=== PATIENT | male | born 1995 | race Caucasian/White ===

== ENCOUNTER 2018-03-09 09:57 | Inpatient (IN) | payer OTHER ==
[2018-03-09 10:58] VITALS: BMI 26.6
--- NOTE | 2018-03-09 11:43 | HP ---
COWS - Scale Resting Pulse: 1= [place] 81-100 Sweatin= Chills/Flushing Restless Observation: 1= Difficult to Sit Still Pupil Size: 0= Normal to Room Light Bone or Joint Aches: 2= Severe Diffuse Aches Runny Nose/ Eye Tearin= Runny Nose/Eyes GI Upset > 30mins: 1= Stomach Cramp Tremor Observation: 2= Slight Tremor Visible Yawning Observation: 1= 1-2x During Session Anxiety or Irritability: 1=Feels Anxious/Irritable Goose Flesh Skin: 0=Smooth Skin COWS Score: 12 CIWA Score - CIWA Score Nausea/Vomitin Muscle Tremors: 3 Anxiety: 3 Agitation: 0-Normal Activity Paroxysmal Sweats: No Perspiration Orientation: 1-Uncertain about Date Tacttile Disturbances: 0-None Auditory Disturbances: 0-None Visual Disturbances: 0-None Headache: 3-Moderate CIWA-Ar Total Score: 12 Admission ROS BHS - HPI Chief Complaint: I see I need help, I need to take this step to better myself. Allergies/Adverse Reactions: Allergies Allergy/AdvReac Type Severity Reaction Status Date / Time No Known Allergies Allergy Verified 03/09/18 10:55 History of Present Illness: 23 yo gentleman her for detox from alcohol and opiates. He reports relapsing after 10 months in recovery. Was in rehab in [place] for 115 days - released in Jun 22, 2017. Came to [place] in November and relapsed. No overdoses, no black outs, denies seizures. Currently attending [facility] outpatient treatment program and was advised he needed higher level of care and to come in for detox. Exam Limitations: Clinical Condition - Ebola screening Have you traveled outside of the country in the last 21 days: No (N) Have you had contact with anyone from an Ebola affected area: No Have you been sick,other than usual withdrawal symptoms: No Do you have a fever: No - Review of Systems Constitutional: Loss of Appetite, Malaise, Changes in sleep EENT: reports: Nose Congestion Respiratory: reports: No Symptoms reported Cardiac: reports: No Symptoms Reported GI: reports: Nausea, Abdominal cramping : reports: Dysuria Musculoskeletal: reports: Back Pain, Muscle Pain Integumentary: reports: No Symptoms Reported Neuro: reports: Headache Endocrine: reports: No Symptoms Reported Hematology: reports: No Symptoms Reported Psychiatric: reports: Judgement Intact, Mood/Affect Appropiate, Anxious Other Systems: Reviewed and Negative Patient History - Patient Medical History Hx Asthma: No Hx Chronic Obstructive Pulmonary Disease (COPD): No Hx Cancer: No Hx Cardiac Disorders: No Hx Hypertension: No Hx Hypercholesterolemia: No Hx Pacemaker: No Hx Seizures: No Hx Diabetes: No Hx Gastrointestinal Disorders: No Hx Liver Disease: No Hx Genitourinary Disorders: No Hx Sexually Transmitted Disorders: No Hx Renal Disease (ESRD): No Hx Thyroid Disease: No Hx Human Immunodeficiency Virus (HIV): No Hx Hepatitis C: No Hx Depression: Yes (hx trazadone, xanax in [place], ADHD - adderal) Hx Suicide Attempt: No Hx Schizophrenia: No - Patient Surgical History Hx Appendectomy: Yes (2014) Anesthesia Reaction: No - PPD History Previous Implant?: No - Reproductive History Patient is a Female of Child Bearing Age (11 -55 yrs old): No (male) - Smoking Cessation Smoking history: Current some day smoker Have you smoked in the past 12 months: Yes Aproximately how many cigarettes per day: 10 Hx Chewing Tobacco Use: No Initiated information on smoking cessation: Yes 'Breaking Loose' booklet given: 03/09/18 (give on floor) - Substance & Tx. History Hx Alcohol Use: Yes Hx Substance Use: Yes Substance Use Type: Alcohol, Heroin Hx Substance Use Treatment: Yes (inpatient and outpatient rehab) - Substances Abused Alcohol Route: Oral Frequency: Daily Amount used: 2 24ozs beer Age of first use: 15 Date of Last Use: 03/08/18 Oxycontin Route: inhales but occasionally injects Frequency: 1-2 times per week Amount used: 60mg Age of first use: 20 Date of Last Use: 03/03/18 Heroin Route: mainly inhales but occasionally injects Frequency: Daily Amount used: 5-6 bags Age of first use: 21 Date of Last Use: 03/08/18 Family Disease History - Family Disease History Family Disease History: Diabetes: Grandparent (htn,), Heart Disease: Grandparent , Other: Grandparent, Father (living, PTSD), Mother (living - mental health issues) Admission Physical Exam BHS - Vital Signs Vital Signs: Vital Signs - 24 hr 03/09/18 10:56 Temperature 97.8 F Pulse Rate 89 Respiratory 20 Rate Blood Pressure 129/75 - Physical General Appearance: Yes: Nourished, Appropriately Dressed, Moderate Distress, Anxious HEENTM: Yes: EOMI, Hearing grossly Normal, Normocephalic, Normal Voice, Pharynx Normal, Other (tongue coated) Respiratory: Yes: Normal Breath Sounds, No Respiratory Distress Neck: Yes: No masses,lesions,Nodules, Supple Breast: Yes: Breast Exam Deferred Cardiology: Yes: Regular Rhythm, Regular Rate Abdominal: Yes: Non Tender, Soft Genitourinary: Yes: Dysuria Back: Yes: Normal Inspection Musculoskeletal: Yes: full range of Motion, Gait Steady, Back pain, Muscle Pain Extremities: Yes: Normal Capillary Refill, Normal Inspection, Non-Tender Neurological: Yes: Fully Oriented, Alert, Motor Strength 5/5, Normal Mood/Affect , Normal Response Integumentary: Yes: Normal Color, Warm, Track [place] (no abscess noted, both arms ) Lymphatic: Yes: Within Normal Limits - Diagnostic (1) Opioid dependence with withdrawal Current Visit: Yes Status: Chronic (2) Alcohol dependence with uncomplicated withdrawal Current Visit: Yes Status: Chronic (3) Nicotine dependence Current Visit: Yes Status: Chronic Qualifiers: Nicotine product type: cigarettes Substance use status: uncomplicated Qualified Code(s): F17.210 - Nicotine dependence, cigarettes, uncomplicated Cleared for Admission [facility] - Detox or Rehab [facility] Level of Care: Medically Managed Detox Regimen/Protocol: Methadone/Librium S Breath Alcohol Content Breath Alcohol Content: 0 Urine Drug Screen - Results Drug Screen Negative: No Urine Drug Screen Results: OPI-Opiates, FEN-Fentanyl
[2018-03-09] MEDS ORDERED: MAGNESIUM CITRATE 300 ML BOTTLE PO PRN (12:16)
[2018-03-09] MEDS ORDERED: MAGNESIUM HYDROX 2400MG/30ML ORAL SUSPENSION 30 ML CUP PO PRN (12:16)
[2018-03-09] MEDS ORDERED: MAG HYDROX/AL HYDROX/SIMETH 30 ML UNIT-DOSE CUP PO PRN (12:16)
[2018-03-09] MEDS ORDERED: hydrOXYzine PAMOATE 25 MG CAPSULE (FP) PO PRN (12:16)
[2018-03-09] MEDS ORDERED: guaiFENesin/D-METHORPHAN HB 10 ML UNIT-DOSE CUPS PO PRN (12:16)
[2018-03-09] MEDS ORDERED: chlordiazePOXIDE HCL 25 MG CAPSULE PO PRN (12:16)
[2018-03-09] MEDS ORDERED: LOPERAMIDE HCL 2 MG CAPSULE PO PRN (12:16)
[2018-03-09] MEDS ORDERED: P-EPHED 60MG/TRIPROLIDI 2.5MG TABLET PO PRN (12:16)
[2018-03-09] MEDS ORDERED: IBUPROFEN 400 MG TABLET (FP) PO PRN (12:16)
[2018-03-09] MEDS ORDERED: MENTHOL/PHENOL 1 EACH UD MM PRN (12:16)
[2018-03-09] MEDS ORDERED: chlordiazePOXIDE HCL 25 MG CAPSULE PO ONE (14:00)
[2018-03-09] MEDS ORDERED: METHADONE HCL 10 MG TABLET (FOR DETOX USE ONLY) PO ONE ×4 (14:00→23:00)
[2018-03-09] MEDS: NICOTINE 21 MG/24 HOURS TOPICAL PATCH TD SCH (14:14)
[2018-03-09] MEDS ORDERED: diazePAM 5 MG TABLET PO ONE (15:00)
[2018-03-09] MEDS: diazePAM 5 MG TABLET PO SCH ×2 (15:14→22:18)
[2018-03-09] MEDS ORDERED: chlordiazePOXIDE HCL 25 MG CAPSULE PO SCH (17:00)
[2018-03-09 17:55] LABS: URINE APPEARANCE SLCLOUDY; URINE BILIRUBIN NEGATIVE (<2.0 mg/dL); URINE COLOR YELLOW; URINE GLUCOSE (UA) NEGATIVE (NEGATIVE); URINE KETONE NEGATIVE (NEGATIVE); URINE LEUK ESTERASE NEGATIVE (NEGATIVE); URINE NITRITE NEGATIVE (NEGATIVE); URINE PROTEIN NEGATIVE (NEGATIVE); URINE UROBILINOGEN NEGATIVE mg/dL (0.2-1.0)
[2018-03-09] MEDS: diazePAM 5 MG TABLET PO PRN (18:01)
--- NOTE | 2018-03-09 18:09 | EKG ---
Test Reason : Blood Pressure : / mmHG Vent. Rate : 103 BPM Atrial Rate : 103 BPM P-R Int : 122 ms QRS Dur : 094 ms QT Int : 356 ms P-R-T Axes : 064 063 033 degrees QTc Int : 466 ms SINUS TACHYCARDIA OTHERWISE NORMAL ECG NO PREVIOUS ECGS AVAILABLE Confirmed by ROVERTO COCHRAN MD ([id number]) on 03/09/2018 6:09:20 PM Referred By: Confirmed By:ROVERTO COCHRAN MD
[2018-03-09] MEDS ORDERED: MELATONIN 5 MG TABLETS PO PRN (22:00)
[2018-03-09] MEDS: FLUTICASONE PROP 0.05% 16 GM NASAL SPRAY NS SCH (22:17)
[2018-03-09] MEDS: THIAMINE HCL 100 MG TABLET (FP) PO SCH (22:18)
[2018-03-10] MEDS: diazePAM 5 MG TABLET PO SCH ×3 (05:22→22:13)
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
[2018-03-10 09:53] LABS: HEMATOCRIT 41.1 % (35.4-49); HEMOGLOBIN 13.6 GM/dL (11.7-16.9); MCH 29.7 pg (25.7-33.7); MCHC 33.1 g/dl (32.0-35.9); MEAN CELL VOLUME 89.6 fl (80-96); PLATELET COUNT 221 K/MM3 (134-434); RBC 4.59 M/mm3 (4.00-5.60); RDW 13.5 % (11.9-15.9); WHITE BLOOD COUNT 8.8 K/mm3 (4.0-10.0)
[2018-03-10] MEDS ORDERED: METHADONE HCL 10 MG TABLET (FOR DETOX USE ONLY) PO SCH ×2 (10:00)
[2018-03-10 10:26] LABS: ALBUMIN 3.3 g/dl (3.4-5.0); ALK PHOS 64 U/L (45-117); ANION GAP 9 MMOL/L (8-16); BILIRUBIN,TOTAL 0.5 mg/dL (0.2-1); BLOOD UREA NITROGEN 15 mg/dL (7-18); CHLORIDE 104 mmol/L (98-107); CO2 29 mmol/L (21-32); CREATININE 0.7 mg/dL (0.55-1.3); GLUCOSE,RANDOM 89 mg/dL (74-106); POTASSIUM 3.9 mmol/L (3.5-5.1); SGOT/AST 9 U/L (15-37); SGPT/ALT 19 U/L (13-61); SODIUM 141 mmol/L (136-145)
[2018-03-10] MEDS: NICOTINE 21 MG/24 HOURS TOPICAL PATCH TD SCH (10:26)
[2018-03-10] MEDS: PRENATAL VITAMINS W/ FOLIC ACID TABLET (FP) PO SCH (10:26)
[2018-03-10] MEDS: diazePAM 5 MG TABLET PO PRN ×2 (10:26→19:30)
[2018-03-10] MEDS: FLUTICASONE PROP 0.05% 16 GM NASAL SPRAY NS SCH ×2 (10:26→22:15)
[2018-03-10] MEDS: NICOTINE POLACRILEX 4 MG GUM BUC PRN ×2 (13:59→23:34)
--- NOTE | 2018-03-10 16:43 | PN ---
S CIWA - CIWA Score Nausea/Vomitin Muscle Tremors: 4-Moderate,w/Arms Extend Anxiety: 4-Mod. Anxious/Guarded Agitation: 4-Moderately Restless Paroxysmal Sweats: 3 Orientation: 0-Oriented Tacttile Disturbances: 0-None Auditory Disturbances: 0-None Visual Disturbances: 0-None Headache: 0-None Present CIWA-Ar Total Score: 17 BHS COWS - Scale Resting Pulse: 0= [place] 80 or Below Sweatin= Chills/Flushing Restless Observation: 3= Extraneous Movement Pupil Size: 1= Pupils >than Normal Bone or Joint Aches: 2= Severe Diffuse Aches Runny Nose/ Eye Tearin= Runny Nose/Eyes GI Upset > 30mins: 2= Nausea/Diarrhea Tremor Observation of Outstretched Hands: 2= Slight Tremor Visible Yawning Observation: 0= None Anxiety or Irritability: 2=Irritable/Anxious Goose Flesh Skin: 0=Smooth Skin COWS Score: 15 S Progress Note (SOAP) Subjective: Fatigue, tremor, chills, sweating, interrupted sleep Objective: 03/10/18 16:42 Last Vital Signs Temp Pulse Resp BP Pulse Ox 96.9 F L 77 18 122/87 03/10/18 13:03 03/10/18 13:03 03/10/18 13:03 03/10/18 13:03 Laboratory Tests 03/09/18 03/10/18 03/10/18 15:54 07:30 07:30 WBC 8.8 RBC 4.59 Hgb 13.6 Hct 41.1 MCV 89.6 MCH 29.7 MCHC 33.1 RDW 13.5 Plt Count 221 MPV 8.0 Sodium 141 Potassium 3.9 Chloride 104 Carbon Dioxide 29 Anion Gap 9 BUN 15 Creatinine 0.7 Creat Clearance w eGFR > 60 Random Glucose 89 Calcium 8.0 L Total Bilirubin 0.5 AST 9 L ALT 19 Alkaline Phosphatase 64 Total Protein 6.0 L Albumin 3.3 L Urine Color Yellow Urine Appearance Slcloudy Urine pH 7.0 Ur Specific [place] 1.016 Urine Protein Negative Urine Glucose (UA) Negative Urine Ketones Negative Urine Blood Negative Urine Nitrite Negative Urine Bilirubin Negative Urine Urobilinogen Negative Ur Leukocyte Esterase Negative RPR Titer 03/10/18 07:30 WBC RBC Hgb Hct MCV MCH MCHC RDW Plt Count MPV Sodium Potassium Chloride Carbon Dioxide Anion Gap BUN Creatinine Creat Clearance w eGFR Random Glucose Calcium Total Bilirubin AST ALT Alkaline Phosphatase Total Protein Albumin Urine Color Urine Appearance Urine pH Ur Specific [place] Urine Protein Urine Glucose (UA) Urine Ketones Urine Blood Urine Nitrite Urine Bilirubin Urine Urobilinogen Ur Leukocyte Esterase RPR Titer Nonreactive Labs reviewed Assessment: 03/10/18 16:43 Withdrawal symptoms Plan: Continue detox Encouraged PO water intake
[2018-03-10] MEDS ORDERED: chlordiazePOXIDE HCL 25 MG CAPSULE PO SCH (17:00)
[2018-03-10] MEDS: THIAMINE HCL 100 MG TABLET (FP) PO SCH (22:13)
[2018-03-10] MEDS: ZOLPIDEM TARTRATE 5 MG TABLET PO PRN (22:13)
[2018-03-11] MEDS: diazePAM 5 MG TABLET PO PRN ×2 (02:11→17:21)
[2018-03-11] MEDS: hydrOXYzine PAMOATE 50 MG CAPSULE (FP) PO PRN ×2 (05:02→12:44)
[2018-03-11] MEDS ORDERED: METHADONE HCL 5 MG TABLET (FOR DETOX USE ONLY) PO SCH ×2 (10:00)
[2018-03-11] MEDS: NICOTINE 21 MG/24 HOURS TOPICAL PATCH TD SCH (10:08)
[2018-03-11] MEDS: diazePAM 5 MG TABLET PO SCH ×2 (10:08→22:17)
[2018-03-11] MEDS: FLUTICASONE PROP 0.05% 16 GM NASAL SPRAY NS SCH ×2 (10:08→22:17)
[2018-03-11] MEDS: PRENATAL VITAMINS W/ FOLIC ACID TABLET (FP) PO SCH (10:08)
--- NOTE | 2018-03-11 11:52 | PN ---
[facility] CIWA - CIWA Score Nausea/Vomitin Muscle Tremors: 3 Anxiety: 3 Agitation: 3 Paroxysmal Sweats: 2 Orientation: 0-Oriented Tacttile Disturbances: 0-None Auditory Disturbances: 0-None Visual Disturbances: 0-None Headache: 1-Very Mild CIWA-Ar Total Score: 14 BHS COWS - Scale Resting Pulse: 0= [place] 80 or Below Sweatin= Chills/Flushing Restless Observation: 3= Extraneous Movement Pupil Size: 0= Normal to Room Light Bone or Joint Aches: 2= Severe Diffuse Aches Runny Nose/ Eye Tearin= Runny Nose/Eyes GI Upset > 30mins: 1= Stomach Cramp Tremor Observation of Outstretched Hands: 2= Slight Tremor Visible Yawning Observation: 1= 1-2x During Session Anxiety or Irritability: 2=Irritable/Anxious Goose Flesh Skin: 0=Smooth Skin COWS Score: 14 [facility] Progress Note (SOAP) Subjective: Fatigue, poor appetite, constipation (hard stool), interrupted sleep Objective: 03/11/18 11:52 Last Vital Signs Temp Pulse Resp BP Pulse Ox 96.9 F L 71 18 98/60 03/11/18 09:06 03/11/18 09:06 03/11/18 09:06 03/11/18 09:06 Laboratory Tests 03/09/18 03/10/18 03/10/18 15:54 07:30 07:30 WBC 8.8 RBC 4.59 Hgb 13.6 Hct 41.1 MCV 89.6 MCH 29.7 MCHC 33.1 RDW 13.5 Plt Count 221 MPV 8.0 Sodium 141 Potassium 3.9 Chloride 104 Carbon Dioxide 29 Anion Gap 9 BUN 15 Creatinine 0.7 Creat Clearance w eGFR > 60 Random Glucose 89 Calcium 8.0 L Total Bilirubin 0.5 AST 9 L ALT 19 Alkaline Phosphatase 64 Total Protein 6.0 L Albumin 3.3 L Urine Color Yellow Urine Appearance Slcloudy Urine pH 7.0 Ur Specific [place] 1.016 Urine Protein Negative Urine Glucose (UA) Negative Urine Ketones Negative Urine Blood Negative Urine Nitrite Negative Urine Bilirubin Negative Urine Urobilinogen Negative Ur Leukocyte Esterase Negative RPR Titer 03/10/18 07:30 WBC RBC Hgb Hct MCV MCH MCHC RDW Plt Count MPV Sodium Potassium Chloride Carbon Dioxide Anion Gap BUN Creatinine Creat Clearance w eGFR Random Glucose Calcium Total Bilirubin AST ALT Alkaline Phosphatase Total Protein Albumin Urine Color Urine Appearance Urine pH Ur Specific [place] Urine Protein Urine Glucose (UA) Urine Ketones Urine Blood Urine Nitrite Urine Bilirubin Urine Urobilinogen Ur Leukocyte Esterase RPR Titer Nonreactive Labs reviewed Assessment: 03/11/18 11:55 Withdrawal symptoms Plan: Continue detox Encouraged PO water intake
[2018-03-11] MEDS ORDERED: PNEUMOCOCCAL 23 VACCINE 0.5 ML VIAL IM ONE (12:00)
[2018-03-11] MEDS ORDERED: PNEUMOC 13-VAL CONJ-DIP CRM/PF 0.5 ML DISP.SYRIN IM ONE (12:00)
[2018-03-11] MEDS ORDERED: chlordiazePOXIDE 5 MG CAPSULE PO SCH (17:00)
[2018-03-11] MEDS: ZOLPIDEM TARTRATE 5 MG TABLET PO PRN (22:17)
[2018-03-11] MEDS: THIAMINE HCL 100 MG TABLET (FP) PO SCH (22:17)
[2018-03-11] MEDS: NICOTINE POLACRILEX 4 MG GUM BUC PRN (22:19)
[2018-03-12] MEDS: diazePAM 5 MG TABLET PO PRN (05:42)
[2018-03-12] MEDS: ACETAMINOPHEN 325 MG TABLET (FP) PO PRN (06:08)
[2018-03-12] MEDS ORDERED: METHADONE HCL 10 MG TABLET (FOR DETOX USE ONLY) PO SCH (10:00)
[2018-03-12] MEDS: diazePAM 5 MG TABLET PO SCH ×2 (10:18→22:27)
[2018-03-12] MEDS: NICOTINE 21 MG/24 HOURS TOPICAL PATCH TD SCH (10:18)
[2018-03-12] MEDS: FLUTICASONE PROP 0.05% 16 GM NASAL SPRAY NS SCH ×2 (10:18→22:27)
[2018-03-12] MEDS: PRENATAL VITAMINS W/ FOLIC ACID TABLET (FP) PO SCH (10:18)
--- NOTE | 2018-03-12 14:02 | PN ---
BHS Progress Note (SOAP) Subjective: Fatigue, sweating, interrupted sleep. Patient requested early discharge. Patient is scheduled for discharge on and requested to leave tomorrow instead. Patient agreed to adjust his detox protocol. Objective: 03/12/18 14:01 Last Vital Signs Temp Pulse Resp BP Pulse Ox 99.1 F 105 H 18 112/73 03/12/18 13:18 03/12/18 13:18 03/12/18 13:18 03/12/18 13:18 Laboratory Tests 03/09/18 03/10/18 03/10/18 15:54 07:30 07:30 WBC 8.8 RBC 4.59 Hgb 13.6 Hct 41.1 MCV 89.6 MCH 29.7 MCHC 33.1 RDW 13.5 Plt Count 221 MPV 8.0 Sodium 141 Potassium 3.9 Chloride 104 Carbon Dioxide 29 Anion Gap 9 BUN 15 Creatinine 0.7 Creat Clearance w eGFR > 60 Random Glucose 89 Calcium 8.0 L Total Bilirubin 0.5 AST 9 L ALT 19 Alkaline Phosphatase 64 Total Protein 6.0 L Albumin 3.3 L Urine Color Yellow Urine Appearance Slcloudy Urine pH 7.0 Ur Specific [place] 1.016 Urine Protein Negative Urine Glucose (UA) Negative Urine Ketones Negative Urine Blood Negative Urine Nitrite Negative Urine Bilirubin Negative Urine Urobilinogen Negative Ur Leukocyte Esterase Negative RPR Titer 03/10/18 07:30 WBC RBC Hgb Hct MCV MCH MCHC RDW Plt Count MPV Sodium Potassium Chloride Carbon Dioxide Anion Gap BUN Creatinine Creat Clearance w eGFR Random Glucose Calcium Total Bilirubin AST ALT Alkaline Phosphatase Total Protein Albumin Urine Color Urine Appearance Urine pH Ur Specific [place] Urine Protein Urine Glucose (UA) Urine Ketones Urine Blood Urine Nitrite Urine Bilirubin Urine Urobilinogen Ur Leukocyte Esterase RPR Titer Nonreactive Labs reviewed Assessment: 03/12/18 14:01 Withdrawal symptoms Plan: Continue detox Encouraged PO water intake
[2018-03-12] MEDS: hydrOXYzine PAMOATE 50 MG CAPSULE (FP) PO PRN (17:00)
[2018-03-12] MEDS ORDERED: chlordiazePOXIDE HCL 10 MG CAPSULE PO SCH (17:00)
[2018-03-12 22:19] VITALS: PULSE 67
[2018-03-12] MEDS: THIAMINE HCL 100 MG TABLET (FP) PO SCH (22:27)
[2018-03-12] MEDS: ZOLPIDEM TARTRATE 5 MG TABLET PO PRN (22:27)
[2018-03-12] MEDS: NICOTINE POLACRILEX 4 MG GUM BUC PRN (22:28)
[2018-03-13] MEDS: ACETAMINOPHEN 325 MG TABLET (FP) PO PRN (05:18)
[2018-03-13] MEDS ORDERED: METHADONE HCL 5 MG TABLET (FOR DETOX USE ONLY) PO SCH (06:00)
[2018-03-13 06:36] VITALS: BP 99/64; TEMP 97
[2018-03-13] MEDS ORDERED: diazePAM 5 MG TABLET PO SCH ×2 (08:00→10:00)
[2018-03-13] MEDS ORDERED: METHADONE HCL 10 MG TABLET (FOR DETOX USE ONLY) PO SCH ×2 (10:00)
--- NOTE | 2018-03-13 10:39 | DS ---
[facility] Detox Discharge Summary Admission Date: 03/09/18 - History Present History: Alcohol Dependence, Opioid Dependence Pertinent Past History: Alcohol dependence Opioid dependence Nicotine dependence - Physical Exam Results Vital Signs: Vital Signs Temperature 97.0 F L 03/13/18 06:35 Pulse Rate 67 03/13/18 06:35 Respiratory Rate 18 03/13/18 06:35 Blood Pressure 99/64 03/13/18 06:35 O2 Sat by Pulse Oximetry (%) Pertinent Admission Physical Exam Findings: Withdrawal symptoms Laboratory Tests 03/09/18 03/10/18 03/10/18 15:54 07:30 07:30 WBC 8.8 RBC 4.59 Hgb 13.6 Hct 41.1 MCV 89.6 MCH 29.7 MCHC 33.1 RDW 13.5 Plt Count 221 MPV 8.0 Sodium 141 Potassium 3.9 Chloride 104 Carbon Dioxide 29 Anion Gap 9 BUN 15 Creatinine 0.7 Creat Clearance w eGFR > 60 Random Glucose 89 Calcium 8.0 L Total Bilirubin 0.5 AST 9 L ALT 19 Alkaline Phosphatase 64 Total Protein 6.0 L Albumin 3.3 L Urine Color Yellow Urine Appearance Slcloudy Urine pH 7.0 Ur Specific [place] 1.016 Urine Protein Negative Urine Glucose (UA) Negative Urine Ketones Negative Urine Blood Negative Urine Nitrite Negative Urine Bilirubin Negative Urine Urobilinogen Negative Ur Leukocyte Esterase Negative RPR Titer 03/10/18 07:30 WBC RBC Hgb Hct MCV MCH MCHC RDW Plt Count MPV Sodium Potassium Chloride Carbon Dioxide Anion Gap BUN Creatinine Creat Clearance w eGFR Random Glucose Calcium Total Bilirubin AST ALT Alkaline Phosphatase Total Protein Albumin Urine Color Urine Appearance Urine pH Ur Specific [place] Urine Protein Urine Glucose (UA) Urine Ketones Urine Blood Urine Nitrite Urine Bilirubin Urine Urobilinogen Ur Leukocyte Esterase RPR Titer Nonreactive Labs reviewed - Treatment Hospital Course: Detox Protocol Followed, Detoxed Safely, Responded well, Discharged Condition Good - Medication Discharge Medications: Ambulatory Orders Alprazolam [Xanax] 2 mg PO HS PRN 03/09/18 Fluticasone Prop 0.05% Nasal [Flonase -] 1 - 2 spray NS BID 03/09/18 Trazodone HCl 150 mg PO HS 03/09/18 Zolpidem Tartrate [Ambien] 10 mg PO HS 03/09/18 hydrOXYzine HCL [Atarax -] 50 mg PO TID PRN 03/09/18 - Diagnosis (1) Alcohol dependence with uncomplicated withdrawal Status: Acute (2) Opioid dependence with withdrawal Status: Acute (3) Substance-induced anxiety disorder Status: Acute (4) Substance-induced sleep disorder Status: Acute (5) Nicotine dependence Status: Chronic Qualifiers: Nicotine product type: cigarettes Substance use status: uncomplicated Qualified Code(s): F17.210 - Nicotine dependence, cigarettes, uncomplicated - AMA Did Patient Leave Against Medical Advice: No (F/U with your PCP within 1-2 weeks )
[2018-03-14] MEDS ORDERED: METHADONE HCL 5 MG TABLET (FOR DETOX USE ONLY) PO SCH ×2 (06:00)
== END 2018-03-13 08:23 | disposition home or self-care (01) | DRG 773 ==
LOC: YASAS 09:57 → Y6N 11:44 → UNDOADMIN 11:44 → Y3N 12:49
PROC: HZ2ZZZZ Detoxification Services for Substance Abuse Treatment (ICD-10-PCS; principal; 2018-03-09)
DX: F11.23 Opioid dependence with withdrawal (principal); F10.230 Alcohol dependence with withdrawal, uncomplicated; F17.210 Nicotine dependence, cigarettes, uncomplicated; F19.280 Other psychoactive substance dependence with psychoactive substance-induced anxiety disorder; F19.282 Other psychoactive substance dependence with psychoactive substance-induced sleep disorder
CPT/HCPCS: 36415; 80053; 81003; 85027; 86593; 90732; 93005; 93010; G0009

== ENCOUNTER 2018-04-29 19:53 | Inpatient (IN) | payer OTHER ==
[2018-04-29 20:20] VITALS: BMI 27.4
--- NOTE | 2018-04-30 00:10 | HP ---
COWS - Scale Resting Pulse: 1= [place] 81-100 Sweatin=Flushed/Facial Moisture Restless Observation: 0= Sits Still Pupil Size: 0= Normal to Room Light Bone or Joint Aches: 4=Acute Joint/Muscle Pain Runny Nose/ Eye Tearin= Runny Nose/Eyes GI Upset > 30mins: 2= Nausea/Diarrhea Tremor Observation: 4= Gross Tremor/Twitching Yawning Observation: 0= None Anxiety or Irritability: 0= None Goose Flesh Skin: 0=Smooth Skin COWS Score: 15 CIWA Score Nausea/Vomitin Muscle Tremors: 3 Anxiety: 3 Agitation: 3 Paroxysmal Sweats: 2 Orientation: 0-Oriented Tacttile Disturbances: 1-Very Mild Itch/Numbness Auditory Disturbances: 0-None Visual Disturbances: 0-None Headache: 0-None Present CIWA-Ar Total Score: 15 - Admission Criteria OASAS Guidelines: Admission for Medically Managed Detox: Requires at least one of the followin. CIWA greater than 12 2. Seizures within the past 24 hours 3. Delirium tremens within the past 24 hours 4. Hallucinations within the past 24 hours 5. Acute intervention needed for co occurring medical disorder 6. Acute intervention needed for co occurring psychiatric disorder 7. Severe withdrawal that cannot be handled at a lower level of care (continued vomiting, continued diarrhea, abnormal vital signs) requiring intravenous medication and/or fluids 8. Admission ROS [facility] Chief Complaint: ALCOHOL AND HEROIN WITHDRAWAL SYMPTOMS Allergies/Adverse Reactions: Allergies Allergy/AdvReac Type Severity Reaction Status Date / Time No Known Allergies Allergy Verified 03/09/18 10:55 History of Present Illness: 23 years old male with 2 years of heroin dependence and 6 years of alcohol dependence is seeking admission to detox. Patient reports9 months of sobriety. He has medical history depression and anxiety. He reports suicide attempt in 2016 and denies suicidal ideation at this time. Exam Limitations: No Limitations - Ebola screening Have you traveled outside of the country in the last 21 days: No (N) Have you had contact with anyone from an Ebola affected area: No Have you been sick,other than usual withdrawal symptoms: No Do you have a fever: No - Review of Systems Constitutional: Chills, Malaise, Changes in sleep, Weakness EENT: reports: Sinus Pressure Respiratory: reports: Wheezing Cardiac: reports: No Symptoms Reported GI: reports: Nausea, Poor Appetite, Poor Fluid Intake : reports: No Symptoms Reported Musculoskeletal: reports: Back Pain, Muscle Pain, Muscle Weakness Integumentary: reports: Dryness, Flushing Neuro: reports: Headache Endocrine: reports: No Symptoms Reported Hematology: reports: No Symptoms Reported Psychiatric: reports: Mood/Affect Appropiate, Depressed Other Systems: Reviewed and Negative Patient History - Patient Medical History Hx Asthma: No Hx Chronic Obstructive Pulmonary Disease (COPD): No Hx Cancer: No Hx Cardiac Disorders: No Hx Hypertension: No Hx Hypercholesterolemia: No Hx Pacemaker: No Hx Seizures: No Hx Diabetes: No Hx Gastrointestinal Disorders: No Hx Liver Disease: No Hx Genitourinary Disorders: No Hx Sexually Transmitted Disorders: No Hx Renal Disease (ESRD): No Hx Thyroid Disease: No Hx Human Immunodeficiency Virus (HIV): No Hx Hepatitis C: No Hx Depression: Yes (hx trazadone, xanax in [place], ADHD - adderal) Hx Suicide Attempt: No Hx Schizophrenia: No Other Medical History: Anxiety- Atarax - Patient Surgical History Hx Appendectomy: Yes (2014) Anesthesia Reaction: No - PPD History Previous Implant?: Yes Documented Results: Negative w/o proof Implanted On Prior R Admission?: Yes Date: 03/11/18 PPD to be Administered?: Yes - Reproductive History Patient is a Female of Child Bearing Age (11 -55 yrs old): No (MALE) - Smoking Cessation Smoking history: Current some day smoker Have you smoked in the past 12 months: Yes Aproximately how many cigarettes per day: 10 Hx Chewing Tobacco Use: No Initiated information on smoking cessation: Yes 'Breaking Loose' booklet given: 04/30/18 - Substance & Tx. History Hx Alcohol Use: Yes Hx Substance Use: Yes Substance Use Type: Alcohol, Heroin, Marijuana Hx Substance Use Treatment: Yes - Substances Abused Alcohol Route: Oral Frequency: Daily Amount used: BEER - 40 oz daily Age of first use: 17 Date of Last Use: 04/29/18 Heroin Route: Inhalation Frequency: Daily Amount used: $50 Age of first use: 20 Date of Last Use: 04/29/18 Family Disease History - Family Disease History Family Disease History: Diabetes: Grandparent (htn,), Heart Disease: Grandparent , Other: Grandparent, Father (living, PTSD), Mother (living - mental health issues) Admission Physical Exam BHS - Vital Signs Vital Signs: Vital Signs - 24 hr 04/29/18 20:16 Temperature 97.8 F Pulse Rate 87 Respiratory 18 Rate Blood Pressure 137/74 - Physical General Appearance: Yes: Moderate Distress, Tremorous, Irritable, Sweating, Anxious HEENTM: Yes: EOMI, Normocephalic, Normal Voice, ELIZABETH Respiratory: Yes: Lungs Clear, Normal Breath Sounds, No Respiratory Distress Neck: Yes: Supple Breast: Yes: Breast Exam Deferred Cardiology: Yes: Regular Rhythm, Regular Rate Abdominal: Yes: Normal Bowel Sounds, Soft Genitourinary: Yes: Within Normal Limits Back: Yes: Normal Inspection Musculoskeletal: Yes: Back pain, Joint swelling, Muscle weakness Extremities: Yes: Normal Inspection 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 intact, Alert, Motor Strength 5/5, Normal Response Integumentary: Yes: Warm Lymphatic: Yes: Within Normal Limits - Diagnostic (1) Depression Current Visit: Yes Status: Acute (2) Anxiety Current Visit: Yes Status: Acute (3) Alcohol dependence with uncomplicated withdrawal Current Visit: No Status: Acute (4) Opioid dependence with withdrawal Current Visit: No Status: Acute (5) Nicotine dependence Current Visit: No Status: Chronic Qualifiers: Nicotine product type: cigarettes Substance use status: uncomplicated Qualified Code(s): F17.210 - Nicotine dependence, cigarettes, uncomplicated Cleared for Admission [facility] - Detox or Rehab [facility] Level of Care: Medically Managed Detox Regimen/Protocol: Methadone/Valium [facility] Breath Alcohol Content Breath Alcohol Content: 0.010 Urine Drug Screen - Results Drug Screen Negative: No Urine Drug Screen Results: THC-Marijuana, OPI-Opiates, FEN-Fentanyl
[2018-04-30] MEDS ORDERED: IBUPROFEN 400 MG TABLET (FP) PO PRN (00:18)
[2018-04-30] MEDS ORDERED: guaiFENesin/D-METHORPHAN HB 10 ML UNIT-DOSE CUPS PO PRN (00:18)
[2018-04-30] MEDS ORDERED: MAG HYDROX/AL HYDROX/SIMETH 30 ML UNIT-DOSE CUP PO PRN (00:18)
[2018-04-30] MEDS ORDERED: P-EPHED 60MG/TRIPROLIDI 2.5MG TABLET PO PRN (00:18)
[2018-04-30] MEDS ORDERED: MENTHOL/PHENOL 1 EACH UD MM PRN (00:18)
[2018-04-30] MEDS ORDERED: MAGNESIUM CITRATE 300 ML BOTTLE PO PRN (00:18)
[2018-04-30] MEDS ORDERED: MAGNESIUM HYDROX 2400MG/30ML ORAL SUSPENSION 30 ML CUP PO PRN (00:18)
[2018-04-30] MEDS ORDERED: LOPERAMIDE HCL 2 MG CAPSULE PO PRN (00:18)
[2018-04-30] MEDS ORDERED: diazePAM 5 MG TABLET PO ONE (00:21)
[2018-04-30] MEDS ORDERED: METHADONE HCL 10 MG TABLET (FOR DETOX USE ONLY) PO ONE ×2 (00:21→23:00)
[2018-04-30] MEDS: ACETAMINOPHEN 325 MG TABLET (FP) PO PRN ×2 (01:11→16:22)
[2018-04-30] MEDS: MELATONIN 5 MG TABLETS PO PRN ×2 (01:11→22:02)
[2018-04-30] MEDS: diazePAM 5 MG TABLET PO SCH ×3 (05:12→22:02)
[2018-04-30] MEDS: PRENATAL VITAMINS W/ FOLIC ACID TABLET (FP) PO SCH (10:09)
[2018-04-30] MEDS: NICOTINE 14 MG/24 HOURS TOPICAL PATCH TD SCH (10:09)
[2018-04-30] MEDS: diazePAM 5 MG TABLET PO PRN ×2 (10:09→16:21)
[2018-04-30] MEDS ORDERED: FLU VACCINE QUAD 60 MCG/0.5 ML (MDV 18-19) IM ONE (12:00)
--- NOTE | 2018-04-30 12:18 | PN ---
[facility] CIWA - CIWA Score Nausea/Vomitin-Mild Nausea/No Vomiting Muscle Tremors: 3 Anxiety: 2 Agitation: 3 Paroxysmal Sweats: 1-Minimal Palms Moist Orientation: 1-Uncertain about Date Tacttile Disturbances: 0-None Auditory Disturbances: 0-None Visual Disturbances: 0-None Headache: 2-Mild CIWA-Ar Total Score: 13 BHS COWS - Scale Resting Pulse: 0= [place] 80 or Below Sweatin= Chills/Flushing Restless Observation: 0= Sits Still Pupil Size: 0= Normal to Room Light Bone or Joint Aches: 2= Severe Diffuse Aches Runny Nose/ Eye Tearin= Nasal Congestion GI Upset > 30mins: 2= Nausea/Diarrhea Tremor Observation of Outstretched Hands: 1= Tremor [place], Not Seen Yawning Observation: 1= 1-2x During Session Anxiety or Irritability: 1=Feels Anxious/Irritable Goose Flesh Skin: 0=Smooth Skin COWS Score: 9 S Progress Note (SOAP) Subjective: body aches joints pain tremor sweat Objective: 04/30/18 12:18 Vital Signs Temperature 96.3 F L 04/30/18 09:08 Pulse Rate 56 L 04/30/18 09:08 Respiratory Rate 18 04/30/18 09:08 Blood Pressure 107/72 04/30/18 09:08 O2 Sat by Pulse Oximetry (%) lab pending 04/30/18 12:21 lab date changed to today Assessment: 04/30/18 12:21 withdrawal sx Plan: continue detox
[2018-04-30] MEDS: NICOTINE POLACRILEX 2 MG GUM BC PRN ×2 (12:49→17:23)
[2018-04-30] MEDS: hydrOXYzine PAMOATE 50 MG CAPSULE (FP) PO PRN (19:53)
[2018-04-30] MEDS: THIAMINE HCL 100 MG TABLET (FP) PO SCH (22:02)
[2018-05-01] MEDS: diazePAM 5 MG TABLET PO PRN ×3 (03:58→17:04)
[2018-05-01] MEDS: diazePAM 5 MG TABLET PO SCH ×3 (06:06→22:22)
[2018-05-01] MEDS: PRENATAL VITAMINS W/ FOLIC ACID TABLET (FP) PO SCH (09:49)
[2018-05-01] MEDS: NICOTINE 14 MG/24 HOURS TOPICAL PATCH TD SCH (09:50)
[2018-05-01] MEDS: ACETAMINOPHEN 325 MG TABLET (FP) PO PRN (09:52)
[2018-05-01] MEDS ORDERED: METHADONE HCL 10 MG TABLET (FOR DETOX USE ONLY) PO SCH (10:00)
[2018-05-01 11:06] LABS: HEMOGLOBIN 14.1 GM/dL (11.7-16.9); MCH 29.1 pg (25.7-33.7); MCHC 32.7 g/dl (32.0-35.9); MEAN PLT VOLUME 8.3 fl (7.5-11.1); PLATELET COUNT 256 K/MM3 (134-434); RBC 4.83 M/mm3 (4.00-5.60); WHITE BLOOD COUNT 8.4 K/mm3 (4.0-10.0)
[2018-05-01 12:04] LABS: ALK PHOS 67 U/L (45-117); ANION GAP 9 MMOL/L (8-16); BILIRUBIN,TOTAL 0.5 mg/dL (0.2-1); BLOOD UREA NITROGEN 10 mg/dL (7-18); CALCIUM 9.2 mg/dL (8.5-10.1); CHLORIDE 105 mmol/L (98-107); CO2 29 mmol/L (21-32); CREATININE 0.9 mg/dL (0.55-1.3); GLUCOSE,RANDOM 79 mg/dL (74-106); POTASSIUM 4.1 mmol/L (3.5-5.1); SGOT/AST 10 U/L (15-37); SGPT/ALT 19 U/L (13-61); SODIUM 142 mmol/L (136-145); TOT PROT 7.2 g/dl (6.4-8.2)
--- NOTE | 2018-05-01 12:07 | PN ---
[facility] CIWA - CIWA Score Nausea/Vomitin-Mild Nausea/No Vomiting Muscle Tremors: 4-Moderate,w/Arms Extend Anxiety: 2 Agitation: 3 Paroxysmal Sweats: 1-Minimal Palms Moist Orientation: 0-Oriented Tacttile Disturbances: 0-None Auditory Disturbances: 0-None Visual Disturbances: 0-None Headache: 0-None Present CIWA-Ar Total Score: 11 S COWS - Scale Resting Pulse: 0= [place] 80 or Below Sweatin= Beads of Sweat on Face Restless Observation: 0= Sits Still Pupil Size: 0= Normal to Room Light Bone or Joint Aches: 1= Mild Discomfort Runny Nose/ Eye Tearin= Nasal Congestion GI Upset > 30mins: 1= Stomach Cramp Tremor Observation of Outstretched Hands: 1= Tremor [place], Not Seen Yawning Observation: 1= 1-2x During Session Anxiety or Irritability: 1=Feels Anxious/Irritable Goose Flesh Skin: 0=Smooth Skin COWS Score: 9 S Progress Note (SOAP) Subjective: headache tremor sweat body aches trouble sleep at night Objective: 05/01/18 12:08 Vital Signs Temperature 98.1 F 05/01/18 09:24 Pulse Rate 62 05/01/18 09:24 Respiratory Rate 18 05/01/18 09:24 Blood Pressure 99/62 05/01/18 09:24 O2 Sat by Pulse Oximetry (%) Laboratory Last Values WBC 8.4 K/mm3 (4.0-10.0) 05/01/18 07:30 RBC 4.83 M/mm3 (4.00-5.60) 05/01/18 07:30 Hgb 14.1 GM/dL (11.7-16.9) 05/01/18 07:30 Hct 43.0 % (35.4-49) 05/01/18 07:30 MCV 89.0 fl (80-96) 05/01/18 07:30 MCH 29.1 pg (25.7-33.7) 05/01/18 07:30 MCHC 32.7 g/dl (32.0-35.9) 05/01/18 07:30 RDW 13.0 % (11.9-15.9) 05/01/18 07:30 Plt Count 256 K/MM3 (134-434) 05/01/18 07:30 MPV 8.3 fl (7.5-11.1) 05/01/18 07:30 Sodium 142 mmol/L (136-145) 05/01/18 07:30 Potassium 4.1 mmol/L (3.5-5.1) 05/01/18 07:30 Chloride 105 mmol/L (98-107) 05/01/18 07:30 Carbon Dioxide 29 mmol/L (21-32) 05/01/18 07:30 Anion Gap 9 MMOL/L (8-16) 05/01/18 07:30 BUN 10 mg/dL (7-18) 05/01/18 07:30 Creatinine 0.9 mg/dL (0.55-1.3) 05/01/18 07:30 Creat Clearance w eGFR > 60 (>60) 05/01/18 07:30 Random Glucose 79 mg/dL (74-106) 05/01/18 07:30 Calcium 9.2 mg/dL (8.5-10.1) 05/01/18 07:30 Total Bilirubin 0.5 mg/dL (0.2-1) 05/01/18 07:30 AST 10 U/L (15-37) L 05/01/18 07:30 ALT 19 U/L (13-61) 05/01/18 07:30 Alkaline Phosphatase 67 U/L (45-117) 05/01/18 07:30 Total Protein 7.2 g/dl (6.4-8.2) 05/01/18 07:30 Albumin 4.0 g/dl (3.4-5.0) 05/01/18 07:30 RPR Titer Nonreactive (NONREACTIVE) 05/01/18 07:30 lab noted Assessment: 05/01/18 12:08 withdrawal sx Plan: continue detox
[2018-05-01 12:09] LABS: SICKLE CELL SCREEN NEGATIVE (NEGATIVE)
[2018-05-01] MEDS: NICOTINE POLACRILEX 2 MG GUM BC PRN ×2 (14:45→20:22)
[2018-05-01] MEDS ORDERED: METHOCARBAMOL 500 MG TABLET PO ONE (16:45)
[2018-05-01] MEDS: ALBUTEROL SO4 0.083% IH SOL 2.5 MG/3 ML VIAL.NEB. NEB PRN (17:00)
[2018-05-01] MEDS: ALBUTEROL SO4 8 GM HFA INHALER IH PRN (20:00)
[2018-05-01] MEDS: hydrOXYzine PAMOATE 50 MG CAPSULE (FP) PO PRN (20:00)
[2018-05-01] MEDS: THIAMINE HCL 100 MG TABLET (FP) PO SCH (22:21)
[2018-05-01] MEDS: MELATONIN 5 MG TABLETS PO PRN (22:22)
[2018-05-02] MEDS: diazePAM 5 MG TABLET PO PRN ×4 (04:16→20:47)
[2018-05-02] MEDS: ACETAMINOPHEN 325 MG TABLET (FP) PO PRN (04:17)
--- NOTE | 2018-05-02 10:04 | CONSULT ---
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 Substance Abuse History: Smoking history: Current some day smoker. Have you smoked in the past 12 months: Yes. Aproximately how many cigarettes per day: 10. Hx Chewing Tobacco Use: No. Initiated information on smoking cessation: Yes. 'Breaking Loose' booklet given: 04/30/18. - Substance & Tx. History. Hx Alcohol Use: Yes. Hx Substance Use: Yes. Substance Use Type: Alcohol, Heroin, Marijuana. Hx Substance Use Treatment: Yes. - Substances Abused. Alcohol. Route: Oral. Frequency: Daily. Amount used: BEER - 40 oz daily. Age of first use: 17. Date of Last Use: 04/29/18. Heroin. Route: Inhalation. Frequency: Daily. Amount used: $50. Age of first use: 20. Date of Last Use: 04/29/18 Medical History: Asthma Psychiatric History: Patient rep[orts history of depression and anxiety, reports unclear suicidal attempt on ab[place]ut v6 years ago, jumping in fron of traffic. Patient reports no suicidal, homicidal history since then. Patient currently stable on: Trazodone 159mg po qhs. Vistaril 50mg po prn q4 for anxiety Physical/Sexual Abuse/Trauma History: Denies Additional Comment: Trazodone 150mg po qhs. Vistaril 50mg po prn q4 for anxiety Mental Status Exam - Mental Status Exam Alert and Oriented to: Person Cognitive Function: Fair Patient Appearance: Unkempt Mood: Sad Affect: Flat Patient Behavior: Sedated Speech Pattern: Delayed Voice Loudness: Mildly Soft/Quiet Thought Process: Circumstantial Thought Disorder: Being Controlled Hallucinations: Denies Suicidal Ideation: Denies Homicidal Ideation: Denies Insight/Judgement: Fair Sleep: Difficulty falling asleep Appetite: Fair Muscle strength/Tone: Normal Gait/Station: Shuffling Additional Comments: Trazodone 150mg po qhs. Vistaril 50mg po prn q4 for anxiety Psychiatric Findings - Problem List ([place] 1, 2,3) (1) Anxiety Current Visit: Yes Status: Chronic (2) Depression Current Visit: Yes Status: Chronic (3) Opioid dependence with withdrawal Current Visit: No Status: Acute (4) Substance-induced anxiety disorder Current Visit: No Status: Acute (5) Substance-induced sleep disorder Current Visit: No Status: Acute (6) Alcohol dependence with uncomplicated withdrawal Current Visit: No Status: Chronic (7) Nicotine dependence Current Visit: No Status: Chronic Qualifiers: Nicotine product type: cigarettes Substance use status: uncomplicated Qualified Code(s): F17.210 - Nicotine dependence, cigarettes, uncomplicated - Initial Treatment Plan Initial Treatment Plan: Trazodone 159mg po qhs. Vistaril 50mg po prn q4 for anxiety
[2018-05-02] MEDS: NICOTINE 14 MG/24 HOURS TOPICAL PATCH TD SCH (10:09)
[2018-05-02] MEDS: PRENATAL VITAMINS W/ FOLIC ACID TABLET (FP) PO SCH (10:09)
[2018-05-02] MEDS: ALBUTEROL SO4 8 GM HFA INHALER IH PRN (10:09)
[2018-05-02] MEDS: METHADONE HCL 5 MG TABLET (FOR DETOX USE ONLY) PO SCH (10:09)
[2018-05-02] MEDS: diazePAM 5 MG TABLET PO SCH ×2 (10:09→22:04)
--- NOTE | 2018-05-02 16:12 | PN ---
BHS Progress Note (SOAP) Subjective: body aches joints pain tremor sweat low energy Objective: 05/02/18 16:11 Vital Signs Temperature 95.6 F L 05/02/18 13:34 Pulse Rate 82 05/02/18 13:34 Respiratory Rate 20 05/02/18 13:34 Blood Pressure 113/80 05/02/18 13:34 O2 Sat by Pulse Oximetry (%) Laboratory Last Values WBC 8.4 K/mm3 (4.0-10.0) 05/01/18 07:30 RBC 4.83 M/mm3 (4.00-5.60) 05/01/18 07:30 Hgb 14.1 GM/dL (11.7-16.9) 05/01/18 07:30 Hct 43.0 % (35.4-49) 05/01/18 07:30 MCV 89.0 fl (80-96) 05/01/18 07:30 MCH 29.1 pg (25.7-33.7) 05/01/18 07:30 MCHC 32.7 g/dl (32.0-35.9) 05/01/18 07:30 RDW 13.0 % (11.9-15.9) 05/01/18 07:30 Plt Count 256 K/MM3 (134-434) 05/01/18 07:30 MPV 8.3 fl (7.5-11.1) 05/01/18 07:30 Sickle Cell Screen Negative (NEGATIVE) 05/01/18 07:30 Sodium 142 mmol/L (136-145) 05/01/18 07:30 Potassium 4.1 mmol/L (3.5-5.1) 05/01/18 07:30 Chloride 105 mmol/L (98-107) 05/01/18 07:30 Carbon Dioxide 29 mmol/L (21-32) 05/01/18 07:30 Anion Gap 9 MMOL/L (8-16) 05/01/18 07:30 BUN 10 mg/dL (7-18) 05/01/18 07:30 Creatinine 0.9 mg/dL (0.55-1.3) 05/01/18 07:30 Creat Clearance w eGFR > 60 (>60) 05/01/18 07:30 Random Glucose 79 mg/dL (74-106) 05/01/18 07:30 Calcium 9.2 mg/dL (8.5-10.1) 05/01/18 07:30 Total Bilirubin 0.5 mg/dL (0.2-1) 05/01/18 07:30 AST 10 U/L (15-37) L 05/01/18 07:30 ALT 19 U/L (13-61) 05/01/18 07:30 Alkaline Phosphatase 67 U/L (45-117) 05/01/18 07:30 Total Protein 7.2 g/dl (6.4-8.2) 05/01/18 07:30 Albumin 4.0 g/dl (3.4-5.0) 05/01/18 07:30 RPR Titer Nonreactive (NONREACTIVE) 05/01/18 07:30 lab noted Assessment: 05/02/18 16:11 withdrawal sx Plan: continue detox
[2018-05-02] MEDS: traZODone HCL 50 MG TABLET (FP) PO SCH (22:04)
[2018-05-02] MEDS: THIAMINE HCL 100 MG TABLET (FP) PO SCH (22:04)
[2018-05-02] MEDS: MELATONIN 5 MG TABLETS PO PRN (22:04)
[2018-05-03] MEDS: hydrOXYzine PAMOATE 50 MG CAPSULE (FP) PO PRN ×2 (05:33→22:14)
[2018-05-03] MEDS: PRENATAL VITAMINS W/ FOLIC ACID TABLET (FP) PO SCH (10:21)
[2018-05-03] MEDS: METHADONE HCL 5 MG TABLET (FOR DETOX USE ONLY) PO SCH (10:21)
[2018-05-03] MEDS: diazePAM 5 MG TABLET PO SCH ×2 (10:21→22:14)
[2018-05-03] MEDS: NICOTINE 14 MG/24 HOURS TOPICAL PATCH TD SCH (10:22)
[2018-05-03] MEDS: ALBUTEROL SO4 8 GM HFA INHALER IH PRN (10:22)
--- NOTE | 2018-05-03 14:33 | PN ---
[facility] Progress Note Note: PATIENT CONTINUES WITH DETOX REGIMEN. C/O SLEEP DISTURBANCE. DID NOT WANT TO SPEAK TO PROVIDER HE WAS TIRED. Vital Signs Temperature 96 F L 05/03/18 13:04 Pulse Rate 71 05/03/18 13:04 Respiratory Rate 20 05/03/18 13:04 Blood Pressure 107/68 05/03/18 13:04 O2 Sat by Pulse Oximetry (%) Laboratory Tests 05/01/18 05/01/18 05/01/18 07:30 07:30 07:30 WBC 8.4 RBC 4.83 Hgb 14.1 Hct 43.0 MCV 89.0 MCH 29.1 MCHC 32.7 RDW 13.0 Plt Count 256 MPV 8.3 Sickle Cell Screen Negative Sodium 142 Potassium 4.1 Chloride 105 Carbon Dioxide 29 Anion Gap 9 BUN 10 Creatinine 0.9 Creat Clearance w eGFR > 60 Random Glucose 79 Calcium 9.2 Total Bilirubin 0.5 AST 10 L ALT 19 Alkaline Phosphatase 67 Total Protein 7.2 Albumin 4.0 RPR Titer Nonreactive HIV 1&2 Antibody Screen HIV P24 Antigen 05/01/18 08:40 WBC RBC Hgb Hct MCV MCH MCHC RDW Plt Count MPV Sickle Cell Screen Sodium Potassium Chloride Carbon Dioxide Anion Gap BUN Creatinine Creat Clearance w eGFR Random Glucose Calcium Total Bilirubin AST ALT Alkaline Phosphatase Total Protein Albumin RPR Titer HIV 1&2 Antibody Screen Negative HIV P24 Antigen Negative PE: ALERT AND ORIENTED X 3 SKIN WARM AND DRY ANXIOUS/IRRITABLE EXT FULL ROM, AMB AD LISA A/P WITHDRAWAL SX CONTINUE DETOX REGIMEN ENCOURAGE ORAL FLUIDS CONTINUE TO MONITOR CLINICALLY
[2018-05-03] MEDS: ALBUTEROL SO4 0.083% IH SOL 2.5 MG/3 ML VIAL.NEB. NEB PRN (15:46)
[2018-05-03] MEDS: MELATONIN 5 MG TABLETS PO PRN (22:15)
[2018-05-03] MEDS: traZODone HCL 50 MG TABLET (FP) PO SCH (22:15)
[2018-05-03] MEDS: THIAMINE HCL 100 MG TABLET (FP) PO SCH (22:15)
[2018-05-04] MEDS ORDERED: METHADONE HCL 10 MG TABLET (FOR DETOX USE ONLY) PO SCH (10:00)
[2018-05-04] MEDS ORDERED: diazePAM 5 MG TABLET PO SCH (10:00)
[2018-05-04] MEDS: PRENATAL VITAMINS W/ FOLIC ACID TABLET (FP) PO SCH (10:11)
[2018-05-04] MEDS: NICOTINE 14 MG/24 HOURS TOPICAL PATCH TD SCH (10:12)
--- NOTE | 2018-05-04 11:52 | PN ---
[facility]HS Progress Note (SOAP) Subjective: Sweats, tremors, diarrhea, abdominal cramps and back pain Objective: 05/04/18 11:51 Vital Signs Temperature 97.2 F L 05/04/18 10:00 Pulse Rate 58 L 05/04/18 10:00 Respiratory Rate 18 05/04/18 10:00 Blood Pressure 96/64 05/04/18 10:00 O2 Sat by Pulse Oximetry (%) Laboratory Last Values WBC 8.4 K/mm3 (4.0-10.0) 05/01/18 07:30 RBC 4.83 M/mm3 (4.00-5.60) 05/01/18 07:30 Hgb 14.1 GM/dL (11.7-16.9) 05/01/18 07:30 Hct 43.0 % (35.4-49) 05/01/18 07:30 MCV 89.0 fl (80-96) 05/01/18 07:30 MCH 29.1 pg (25.7-33.7) 05/01/18 07:30 MCHC 32.7 g/dl (32.0-35.9) 05/01/18 07:30 RDW 13.0 % (11.9-15.9) 05/01/18 07:30 Plt Count 256 K/MM3 (134-434) 05/01/18 07:30 MPV 8.3 fl (7.5-11.1) 05/01/18 07:30 Sickle Cell Screen Negative (NEGATIVE) 05/01/18 07:30 Sodium 142 mmol/L (136-145) 05/01/18 07:30 Potassium 4.1 mmol/L (3.5-5.1) 05/01/18 07:30 Chloride 105 mmol/L (98-107) 05/01/18 07:30 Carbon Dioxide 29 mmol/L (21-32) 05/01/18 07:30 Anion Gap 9 MMOL/L (8-16) 05/01/18 07:30 BUN 10 mg/dL (7-18) 05/01/18 07:30 Creatinine 0.9 mg/dL (0.55-1.3) 05/01/18 07:30 Creat Clearance w eGFR > 60 (>60) 05/01/18 07:30 Random Glucose 79 mg/dL (74-106) 05/01/18 07:30 Calcium 9.2 mg/dL (8.5-10.1) 05/01/18 07:30 Total Bilirubin 0.5 mg/dL (0.2-1) 05/01/18 07:30 AST 10 U/L (15-37) L 05/01/18 07:30 ALT 19 U/L (13-61) 05/01/18 07:30 Alkaline Phosphatase 67 U/L (45-117) 05/01/18 07:30 Total Protein 7.2 g/dl (6.4-8.2) 05/01/18 07:30 Albumin 4.0 g/dl (3.4-5.0) 05/01/18 07:30 RPR Titer Nonreactive (NONREACTIVE) 05/01/18 07:30 HIV 1&2 Antibody Screen Negative 05/01/18 08:40 HIV P24 Antigen Negative 05/01/18 08:40 Labs noted Assessment: 05/04/18 11:52 Withdrawal sx Plan: Continue detox
[2018-05-04] MEDS: NICOTINE POLACRILEX 2 MG GUM BC PRN ×2 (12:35→21:46)
[2018-05-04] MEDS: ALBUTEROL SO4 8 GM HFA INHALER IH PRN (12:35)
[2018-05-04] MEDS: ALBUTEROL SO4 0.083% IH SOL 2.5 MG/3 ML VIAL.NEB. NEB PRN (12:39)
[2018-05-04] MEDS: traZODone HCL 50 MG TABLET (FP) PO SCH (22:08)
[2018-05-04] MEDS: THIAMINE HCL 100 MG TABLET (FP) PO SCH (22:08)
[2018-05-04] MEDS: hydrOXYzine PAMOATE 50 MG CAPSULE (FP) PO PRN (22:08)
[2018-05-05] MEDS ORDERED: METHADONE HCL 5 MG TABLET (FOR DETOX USE ONLY) PO SCH (06:00)
[2018-05-05 09:54] VITALS: BP 107/61; PULSE 60; TEMP 97.3
[2018-05-05] MEDS: NICOTINE 14 MG/24 HOURS TOPICAL PATCH TD SCH (10:16)
[2018-05-05] MEDS: hydrOXYzine PAMOATE 50 MG CAPSULE (FP) PO PRN (10:17)
[2018-05-05] MEDS: PRENATAL VITAMINS W/ FOLIC ACID TABLET (FP) PO SCH (10:18)
[2018-05-05] MEDS: ALBUTEROL SO4 8 GM HFA INHALER IH PRN (10:20)
--- NOTE | 2018-05-05 15:00 | DS ---
[facility] Detox Discharge Summary Admission Date: 04/29/18 Discharge Date: 05/05/18 - History Present History: Alcohol Dependence, Opioid Dependence Additional Comments: Patient completed detox successfully. Patient is A, A, Ox3, in nad, vss, ambulatory. Patient instructed to follow up with his PCP within 1-2 weeks. Pertinent Past History: Anxiety Depression Alcohol dependence Opioid dependence Nicotine dependence - Physical Exam Results Vital Signs: Vital Signs Temperature 97.3 F L 05/05/18 09:53 Pulse Rate 60 05/05/18 09:53 Respiratory Rate 18 05/05/18 09:53 Blood Pressure 107/61 05/05/18 09:53 O2 Sat by Pulse Oximetry (%) Pertinent Admission Physical Exam Findings: Withdrawal symptoms Laboratory Tests 05/01/18 05/01/18 05/01/18 07:30 07:30 07:30 WBC 8.4 RBC 4.83 Hgb 14.1 Hct 43.0 MCV 89.0 MCH 29.1 MCHC 32.7 RDW 13.0 Plt Count 256 MPV 8.3 Sickle Cell Screen Negative Sodium 142 Potassium 4.1 Chloride 105 Carbon Dioxide 29 Anion Gap 9 BUN 10 Creatinine 0.9 Creat Clearance w eGFR > 60 Random Glucose 79 Calcium 9.2 Total Bilirubin 0.5 AST 10 L ALT 19 Alkaline Phosphatase 67 Total Protein 7.2 Albumin 4.0 RPR Titer Nonreactive HIV 1&2 Antibody Screen HIV P24 Antigen 05/01/18 08:40 WBC RBC Hgb Hct MCV MCH MCHC RDW Plt Count MPV Sickle Cell Screen Sodium Potassium Chloride Carbon Dioxide Anion Gap BUN Creatinine Creat Clearance w eGFR Random Glucose Calcium Total Bilirubin AST ALT Alkaline Phosphatase Total Protein Albumin RPR Titer HIV 1&2 Antibody Screen Negative HIV P24 Antigen Negative Labs reviewed - Treatment Hospital Course: Detox Protocol Followed, Detoxed Safely, Responded well, Discharged Condition Good - Medication Discharge Medications: Ambulatory Orders Alprazolam [Xanax] 2 mg PO HS PRN 03/09/18 Fluticasone Prop 0.05% Nasal [Flonase -] 1 - 2 spray NS BID 03/09/18 Zolpidem Tartrate [Ambien] 10 mg PO HS 03/09/18 hydrOXYzine HCL [Atarax -] 50 mg PO TID PRN 03/09/18 Trazodone HCl 150 mg PO HS #30 tablet 05/02/18 hydrOXYzine PAMOATE [Vistaril -] 50 mg PO Q4H PRN #90 capsule 05/02/18 - Diagnosis (1) Alcohol dependence with uncomplicated withdrawal Status: Acute (2) Opioid dependence with withdrawal Status: Acute (3) Anxiety Status: Chronic (4) Depression Status: Chronic (5) Nicotine dependence Status: Chronic Qualifiers: Nicotine product type: cigarettes Substance use status: uncomplicated Qualified Code(s): F17.210 - Nicotine dependence, cigarettes, uncomplicated - AMA Did Patient Leave Against Medical Advice: No (F/U with PCP within 1-2 weeks)
[2018-05-05] MEDS ORDERED: FLUTICASONE PROP 0.05% 16 GM NASAL SPRAY NS SCH (22:00)
== END 2018-05-05 13:30 | disposition home or self-care (01) | DRG 897 ==
LOC: YASAS 19:53 → Y3N 23:27
PROC: HZ2ZZZZ Detoxification Services for Substance Abuse Treatment (ICD-10-PCS; principal; 2018-04-29)
DX: F11.23 Opioid dependence with withdrawal (principal); F19.280 Other psychoactive substance dependence with psychoactive substance-induced anxiety disorder; F19.282 Other psychoactive substance dependence with psychoactive substance-induced sleep disorder; F10.230 Alcohol dependence with withdrawal, uncomplicated; F17.210 Nicotine dependence, cigarettes, uncomplicated; F41.9 Anxiety disorder, unspecified; F32.9 Major depressive disorder, single episode, unspecified
CPT/HCPCS: 36415; 80053; 85027; 85660; 86593; 87389; 90688; 94640; G0008